=== PATIENT | male | born 1975 | race Caucasian/White ===

== ENCOUNTER 2016-04-12 12:50 | Emergency (ER) | payer OTHER ==
[2016-04-12 13:06] VITALS: RESP 16; TEMP 98.1
--- NOTE | 2016-04-12 13:26 | EDPHY ---
H & P Time Seen by Provider: 04/12/16 13:10 HPI/ROS: CHIEF COMPLAINT: wound check HISTORY OF PRESENT ILLNESS: Patient is a 40-year-old male who presents to the emergency department to have his forehead wound check. Patient sustained a laceration repair in [facility] 2 days ago. He is here in the emergency department because he wanted to make sure they did right. He has no new complaints. No headache or neck pain. No lightheadedness, dizziness, nausea or vomiting. He has had no redness surrounding the wound. Per his report the wound appears to be healing well. REVIEW OF SYSTEMS: Negative Past Medical/Surgical History: Negative Past surgical history: Negative Smoking Status: Never smoked Physical Exam: Vitals noted General Appearance: Alert and no distress. Head: patient has a well healing sutured laceration on his forehead. There is no discharge or surrounding erythema. No tenderness to palpation. ENT: Pupils equal. Normal. Neck: Nexus negative Respiratory: No respiratory distress. Cardiac: regular rate and rhythm. Extremities: Full range of motion, normal appearing. Skin: No rashes or lesions. Neuro: Alert. Normal mood and affect. Constitutional: Initial Vital Signs Temperature (C) 36.7 C 04/12/16 13:03 Heart Rate 64 04/12/16 13:03 Respiratory Rate 16 04/12/16 13:03 Blood Pressure 121/46 H 04/12/16 13:03 O2 Sat (%) 96 04/12/16 13:03 O2 Delivery Mode Room Air Allergies/Adverse Reactions: No Known Allergies Allergy (Unverified 04/12/16 13:06) Home Medications: Medication Instructions Recorded NK [No Known Home Meds] 04/12/16 Medical Decision Making ED Course/Re-evaluation: In the emergency department I discussed care instructions. He was told to have the sutures removed in 7 days. This seems appropriate. I gave the patient warnings prior to leaving. He will return with worsening symptoms. He was given scar precautions. Differential Diagnosis: My differential includes but is not limited to laceration repair, infected wound , cellulitis, abscess, closed-head injury Departure - Departure Disposition: Home, Routine, Self-Care Clinical Impression: Scalp laceration Qualifiers: Encounter type: initial encounter Qualifier Code: (S01.01XA) Laceration without foreign body of scalp, initial encounter Condition: Good Instructions: Laceration (ED) Additional Instructions: Follow the instructions for suture removal from the physician that placed her sutures. Keep your wound out of the sun to avoid scarring. Apply bacitracin twice a day to your wound. Referrals: Jodi Noonan MD [Medical Doctor] - 5-7 days, if not improved
[2016-04-12 13:46] VITALS: BP 125/78; PULSE 74; O2SAT 98
== END 2016-04-12 13:45 | disposition home or self-care (01) ==
DX: S01.01XA Laceration without foreign body of scalp, initial encounter (principal); X58.XXXA Exposure to other specified factors, initial encounter